=== PATIENT | male | born 1985 | race African-American/Black ===

== ENCOUNTER 2016-09-05 19:15 | Emergency (ER) | payer MEDICAID ==
[~2016-09-05] VITALS: Ht 170.2 cm; Wt 76.2 kg
[~2016-09-05 19:15] MED LIST: ALBUPOW26
[2016-09-05 19:47] VITALS: BP 152/84
[2016-09-05] MEDS ORDERED: cefTRIAXone SODIUM 250 MG VL IM ONE (20:45)
[2016-09-05 20:58] LABS: Urine Bilirubin Negative (Negative); Urine Color Yellow (Yellow); Urine Glucose Normal (Normal); Urine Ketone TRACE (Negative); Urine Nitrite Negative (Negative); Urine RBC 35 /hpf (0 - 3); Urine WBC Clumps PRESENT /hpf (None Seen)
[2016-09-05] MEDS ORDERED: AZITHROMYCIN 250 MG TAB PO ONE (21:00)
[2016-09-05 21:15] LABS: Urine Blood 1+ /uL (Negative)
== END 2016-09-05 21:50 | disposition home or self-care (01) ==
LOC: ER 19:21
DX: A64 Unspecified sexually transmitted disease (principal); F17.290 Nicotine dependence, other tobacco product, uncomplicated; J45.909 Unspecified asthma, uncomplicated
CPT/HCPCS: 81001; 96372; 99283; J0696